=== PATIENT | female | born 1940 | race African-American/Black ===

== ENCOUNTER 2017-02-04 14:27 | Emergency (ER) | payer MEDICARE, MEDICAID ==
[~2017-02-04] VITALS: Ht 170.2 cm; Wt 72.0 kg
[~2017-02-04 14:27] MED LIST: AGGR PO; BENA40TA3 PO; CHOL200035 PO; CYAN50003 PO; DULO60CA44 PO; GABA-290 PO; LEVPEN SQ; PRAV10TA35 PO; SITA25TA3 PO; VALS40TA4 PO
[2017-02-04] MEDS ORDERED: KETOROLAC 60MG/2ML VIAL IM ONE (15:00)
[2017-02-04 15:19] LABS: CLARITY URINE CLOUDY (CLEAR); COLOR URINE DARK YELLOW (YELLOW); GLUCOSE URINE NEGATIVE (NEGATIVE); KETONES URINE TRACE (NEGATIVE); LEUKOCYTE ESTERASE URINE 3+ (NEGATIVE); NITRITE URINE NEGATIVE (NEGATIVE); OCCULT BLOOD URINE NEGATIVE (NEGATIVE); PROTEIN URINE 1+ (NEGATIVE); SPECIFIC GRAVITY URINE 1.027 (1.005-1.030); UROBILINOGEN URINE 0.2 E.U./dL (0.2-1.0)
[2017-02-04] MEDS ORDERED: HYDROCODONE/ACETAMINOPHEN 5/325MG TABLET PO ONE (16:00)
[2017-02-04 16:50] VITALS: BP 152/89
== END 2017-02-04 17:17 | disposition home or self-care (01) ==
LOC: ER 14:28
DX: M54.40 Lumbago with sciatica, unspecified side (principal); N39.0 Urinary tract infection, site not specified; E78.00 Pure hypercholesterolemia, unspecified; I10 Essential (primary) hypertension; E11.9 Type 2 diabetes mellitus without complications; Z88.6 Allergy status to analgesic agent
CPT/HCPCS: 72100; 81001; 82962; 96372; 99284; J1885